=== PATIENT | female | born 1995 | race Caucasian/White ===

== ENCOUNTER 2021-09-27 21:57 | Emergency (ER) | payer SELFPAY ==
[2021-09-27] MEDS ORDERED: Acetaminophen 325 MG Tab PO ONE (22:09)
--- NOTE | 2021-09-27 22:14 | EDM.PDOC ---
ED HPI GENERAL MEDICAL PROBLEM - General Chief Complaint: General Stated Complaint: HIGH BLOOD PRESSURE Time Seen by Provider: 09/27/21 22:00 Source of Information: Reports: Patient History Limitations: Reports: No Limitations - History of Present Illness INITIAL COMMENTS - FREE TEXT/NARRATIVE: Patient states she was at work tonight and did not feel well about 730 she felt lightheaded and a little flushed and felt like she was running a fever states they checked her temp at the care center but it was normal she feels it was an accurate she also was rapid Covid test which was negative. She felt like her blood pressure has been up all day and she has been having intermittent episodes of lightheadedness dizziness for few seconds at a time. She also admits she has some mild sternal chest pain that she rates about a 3 out of 10 nonradiating she did admit about 8:00 she smoked a cigarette that the first when she is had and probably at least a week which made her feel a little worse. She does not know any family history secondary to adoption She denies any sedentary lifestyle no control states she has not smoked in over a week now denies any pain or swelling to the lower extremities regards to DVT or PE risk She takes lisinopril 20 mg at around 730 every morning and is taking it for several years. She has no other complaints at this time Onset: Today Duration: Hour(s): Location: Reports: Chest Quality: Reports: Ache Severity: Mild Associated Symptoms: Reports: Chest Pain, Headaches, Other (She is also had intermittent headaches ongoing for the last several weeks which she describes as her normal migraines usually on the right side is a dull pressure she says this 1 is about a 2 out of 10 not the worst headache of her life she has been worked up prior with no abnormal findings) Left upper chest Pain Score (Numeric/FACES): 4 - Related Data Allergies Allergy/AdvReac Type Severity Reaction Status Date / Time No Known Allergies Allergy Verified 09/27/21 22:56 Home Meds: Home Meds lisinopriL [Lisinopril] 20 mg PO DAILY 09/27/21 [History] ED ROS GENERAL - Review of Systems Review Of Systems: See Below Constitutional: Reports: No Symptoms HEENT: Reports: No Symptoms Respiratory: Reports: No Symptoms Cardiovascular: Reports: Chest Pain Endocrine: Reports: No Symptoms GI/Abdominal: Reports: No Symptoms : Reports: No Symptoms Musculoskeletal: Reports: No Symptoms Skin: Reports: No Symptoms Neurological: Reports: Dizziness, Headache. Denies: Numbness, Paresthesia, Pre- Existing Deficit, Syncope, Trouble Speaking, Difficulty Walking, Weakness, Change in Speech Psychiatric: Reports: No Symptoms Hematologic/Lymphatic: Reports: No Symptoms Immunologic: Reports: No Symptoms ED EXAM, DIZZINESS - Physical Exam Exam: See Below Exam Limited By: No Limitations General Appearance: Alert, WD/WN, No Apparent Distress Eye Exam: Bilateral Eye: EOMI, Normal Inspection, PERRL Ears: Normal External Exam, Normal Canal, Hearing Grossly Normal, Normal TMs Nose: Normal Inspection, Normal Mucosa, No Blood Throat/Mouth: Normal Inspection, Normal Lips, Normal Teeth, Normal Gums, Normal Oropharynx, Normal Voice, No Airway Compromise Head Exam: Atraumatic, Normocephalic Neck: Normal Inspection, Supple, Non-Tender, Full Range of Motion Respiratory/Chest: No Respiratory Distress, Lungs Clear, Normal Breath Sounds, No Accessory Muscle Use (Mild tenderness palpation over the sternum). No: Chest Non-Tender Cardiovascular: Normal Peripheral Pulses, Regular Rate, Rhythm, No Edema, No Gallop, Tachycardia, Other (Noted tachycardia also noted fever) GI/Abdominal: Normal Bowel Sounds, Soft, Non-Tender, No Organomegaly, No Distention Neurological: Alert, Normal Mood/Affect, CN II-XII Intact, Normal Gait, No Motor/Sensory Deficits, Oriented x 3 Back Exam: Normal Inspection, Full Range of Motion Extremities: Normal Inspection, Normal Range of Motion, Non-Tender, No Pedal Edema, Normal Capillary Refill Psychiatric: Normal Affect, Normal Mood Skin Exam: Warm, Dry, Intact, Normal Color, No Rash #1 Interpretation EKG Date: 09/27/21 Time: 22:10 Rhythm: NSR [place]: Normal P-Wave: Present QRS: Normal ST-T: Normal QT: Normal Course - Vital Signs Text/Narrative:: Patient's blood pressure was rechecked 160/110 We will give lisinopril 20 mg p.o. CBC BMP troponin EKG Tylenol 1 g p.o. EKG no acute findings noted Wells criteria used only a 1.3% chance of PE CBC BMP troponin all within normal limits Heart rate rechecked down to 75 patient states she feels better okay with going home Last Recorded V/S: Last Vital Signs Temp 37.8 C 09/28/21 00:15 Pulse 73 09/28/21 00:15 Resp 16 09/28/21 00:15 BP 153/100 H 09/28/21 00:15 Pulse Ox 97 09/28/21 00:15 - Orders/Labs/Meds Labs: Laboratory Tests 09/27/21 09/27/21 Range/Units 22:20 22:20 WBC 11.2 H (4.0-10.0) x10^3/uL RBC 4.48 (4.00-5.50) x10^6/uL Hgb 12.9 (12.0-16.0) g/dL Hct 38.7 (33.0-47.0) % MCV 86.4 (78.0-93.0) fL MCH 28.8 (26.0-32.0) pg MCHC 33.3 (32.0-36.0) g/dL RDW Coeff of Nadiya 12.9 (10.0-15.0) % Plt Count 342 (130-400) x10^3/uL Immature Gran % (Auto) 0.40 (0.00-0.43) % Neut % (Auto) 70.5 (50.0-80.0) % Lymph % (Auto) 20.7 L (25.0-50.0) % [place] % (Auto) 6.7 (2.0-11.0) % Eos % (Auto) 1.5 (0.0-4.0) % Baso % (Auto) 0.2 (0.2-1.2) % Neut # (Auto) 7.9 H (1.8-7.7) x10^3/uL Lymph # (Auto) 2.3 (1.0-4.8) x10^3/uL [place] # (Auto) 0.8 (0.0-0.8) x10^3/uL Eos # (Auto) 0.2 (0.0-0.5) x10^3/uL Baso # (Auto) 0.0 (0.0-0.2) x10^3/uL Immature Gran # (Auto) 0.05 (0.00-0.07) x10^3/uL Sodium 139 (136-145) mmol/L Potassium 3.7 (3.5-5.1) mmol/L Chloride 103 (98-107) mmol/L Carbon Dioxide 26 (21-32) mmol/L Anion Gap 13.7 (5-15) mmol/L BUN 15 (7-18) mg/dL Creatinine 1.0 (0.55-1.02) mg/dL Est Cr Clr Drug Dosing TNP Estimated GFR (MDRD) > 60 Glucose 123 H (70-99) mg/dL Calcium 9.0 (8.5-10.1) mg/dL Troponin I High Sens 5 (<=51) ng/L Meds: Medications Discontinued Medications Generic Name Dose Route Start Last Admin Trade Name Freq PRN Reason Stop Dose Admin Acetaminophen 650 mg 09/27/21 22:09 09/27/21 22:40 Acetaminophen 325 Mg Tab PO 09/27/21 22:10 650 mg NOW ONE Administration Lisinopril 20 mg 09/27/21 22:44 09/27/21 22:50 Lisinopril 10 Mg Tab PO 09/27/21 22:45 20 mg ONETIME ONE Administration Departure - Departure Time of Disposition: 00:15 Disposition: Home, Self-Care 01 Condition: Good Clinical Impression: Dizziness, Hypertension, Fever - Discharge Information *PRESCRIPTION DRUG MONITORING PROGRAM REVIEWED*: No *COPY OF PRESCRIPTION DRUG MONITORING REPORT IN PATIENT LUCAS: No Instructions: Hypertension, Adult, [id number], Dizziness, [id number] Referrals: PCP,None [Primary Care Provider] - Forms: ED Department Discharge Additional Instructions: Make sure you follow-up with a primary care provider in the next 24 to 48 hours Take your lisinopril as directed at 7:30 in the morning I recommend taking another 20 mg of lisinopril at 7:30 in the evening until seen by your primary care provider Make sure you drink plenty of fluids I recommend taking Tylenol 1 tab every 4-6 hours as needed for fever for the next 24 hours Return here to the emergency room if anything changes or gets worse - Problem List & Annotations (1) Dizziness SNOMED Code(s): 540612759, 742779791 Code(s): R42 - DIZZINESS AND GIDDINESS Status: Acute (2) Fever SNOMED Code(s): 897946163 Code(s): R50.9 - FEVER, UNSPECIFIED Status: Acute (3) Hypertension SNOMED Code(s): 58888021 Code(s): I10 - ESSENTIAL (PRIMARY) HYPERTENSION Status: Acute
[2021-09-27] MEDS ORDERED: Lisinopril 10 MG Tab PO ONE (22:44)
[2021-09-27 22:47] LABS: CHLORIDE,CL 103 mmol/L (98-107); SODIUM,NA 139 mmol/L (136-145)
[2021-09-27 22:49] LABS: ANION GAP 13.7 mmol/L (5-15)
== END 2021-09-28 01:27 | disposition home or self-care (01) ==
LOC: VM.ED 21:57
DX: R42 Dizziness and giddiness (principal); I10 Essential (primary) hypertension; R50.9 Fever, unspecified
CPT/HCPCS: 36415; 80048; 84484; 85025; 93005; 93010; 99284; 99284-25; A9270-GY